=== PATIENT | female | born 1950 ===

== ENCOUNTER 2019-05-13 08:50 | Day surgery (SDC) | payer OTHER ==
[~2019-05-13 08:50] MED LIST: AMILODIPINE PO; ATACAND32 MG PO; CRESTOR20 MG PO; SYNTHROID137 MCG PO
== END 2019-05-13 16:15 | disposition home or self-care (01) ==
LOC: CIR.AMB 08:50
DX: N93.8 Other specified abnormal uterine and vaginal bleeding (principal)